=== PATIENT | female | born 2000 | race Caucasian/White ===

== ENCOUNTER 2022-05-20 16:54 | Emergency (ER) | payer BC ==
[2022-05-20 17:34] LABS: RED BLOOD COUNT 4.9 M/UL (4.00-5.10); WHITE BLOOD COUNT 8.6 K/UL (4.5-11.0)
[2022-05-20 18:21] LABS: BUN/CREATININE RATIO 13 (0-10)
[2022-05-20] MEDS ORDERED: ZOFRAN 4 MG TAB4 MG PO (19:39)
== END 2022-05-20 19:49 | disposition home or self-care (01) ==
LOC: ER1 16:54
DX: B34.9 Viral infection, unspecified (principal); Z20.822 Contact with and (suspected) exposure to COVID-19
CPT/HCPCS: 0240U; 71045; 80053; 81001; 82550; 82553; 83605; 84484; 84703; 85025; 96374; 99283; J2405